=== PATIENT | male | born 1990 | race African-American/Black ===

== ENCOUNTER 2017-04-15 11:07 | Emergency (ER) | payer BC, OTHER ==
[2017-04-15] MEDS: HYDROcodone/APAP 5/325MG 1 TAB TABLET PO (12:05)
[2017-04-15] MEDS: silver sulfADIAZINE 1% CREAM 25GM TUBE. TP (12:05)
[2017-04-15] MEDS: DIPHTH,PERTUSS(ACELL),TET TOX 0.5 ML DISP.SYRIN. VAX IM (12:07)
== END 2017-04-15 12:31 | disposition home or self-care (01) ==
LOC: ER 11:07
DX: T24.222A Burn of second degree of left knee, initial encounter (principal); T31.0 Burns involving less than 10% of body surface; X19.XXXA Contact with other heat and hot substances, initial encounter; Y93.89 Activity, other specified; Y92.89 Other specified places as the place of occurrence of the external cause; Y99.8 Other external cause status
CPT/HCPCS: 16020; 90471; 90715; 99284-25